=== PATIENT | male | born 1975 | race Caucasian/White ===

== ENCOUNTER → 2016-10-14 | Outpatient (CLI) | payer OTHER ==
[~2016-10-14] MED LIST: ADDERALL20 MG PO; BENTYL10 MG PO; CATAPRES 0.1MG0.1 MG PO; DOXYCYCLINE 10100 MG PO; FIORICET 325 MG1 TA1 PO; FLEXERIL 1010 MG/TAB PO; FOCALIN XR15 MG PO; MECLIZINE HCL25 M1 PO; MOTRIN 200200 MG/TAB PO; MUCINEX DM 30 M1 TE1 PO; MUCINEX600 M1 PO; NEURONTIN100 MG/CAP PO; NO HOME MEDICATIONS; NORCO 325 MG-51 TAB PO; PROVENTIL0.09 MG/A1 IH; ZITHROMAX Z PA250 MG PO
== END ==
LOC: BHSO 14:56
DX: F90.0 Attention-deficit hyperactivity disorder, predominantly inattentive type (principal)

== ENCOUNTER 2016-10-19 09:31 | Outpatient (RCR) | payer OTHER | END 2016-12-09 13:20 | LOC: WSOH 09:31 | DX: S40.012A Contusion of left shoulder, initial encounter (principal); W22.8XXA Striking against or struck by other objects, initial encounter; Y99.0 Civilian activity done for income or pay ==

== ENCOUNTER → 2016-12-30 | Outpatient (CLI) | payer OTHER | LOC: BHSO 15:38 | DX: F90.0 Attention-deficit hyperactivity disorder, predominantly inattentive type (principal) ==